=== PATIENT | male | born 1990 | race Hispanic/Latino ===

== ENCOUNTER 2017-01-12 19:45 | Emergency (ER) | payer OTHER ==
[~2017-01-12] VITALS: Ht 177.8 cm; Wt 74.8 kg
[~2017-01-12 19:45] MED LIST: CIPRO500 M1 PO; FLAGYL500 MG PO; IMODIUM A-D2 M1 PO; LEVSIN-SL0.125 MG SL; VICODIN 5-3001 EACH PO; ZOFRAN ODT4 M1 SL
[2017-01-12 19:52] VITALS: BP 157/103
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
== END 2017-01-12 20:14 | disposition left against medical advice (07) ==
LOC: ERH 19:45
DX: M24.411 Recurrent dislocation, right shoulder (principal)
CPT/HCPCS: 99282

== ENCOUNTER 2017-02-25 18:47 | Emergency (ER) | payer OTHER ==
[~2017-02-25] VITALS: Ht 177.8 cm; Wt 77.1 kg
--- NOTE | 2017-02-25 21:01 | ED SKIN/ALLERGY COMPLAINT ---
History of Present Illness General Chief Complaint: General Adult Stated Complaint: SENT BY SHOW CARD WRITER FOR PENICILLIN INJECTION Source: patient Exam Limitations: no limitations Vital Signs & Intake/Output Vital Signs & Intake/Output Vital Signs Date Time Temp Pulse Resp B/P B/P Pulse O2 O2 Flow FiO2 Mean Ox Delivery Rate 02/25 1851 98.5 103 16 141/95 97 Room Air Allergies Coded Allergies: NO KNOWN ALLERGIES (01/30/14) Reconcile Medications No Known Home Medications Triage Note: PT WAS SEEN IN WALK IN AND F/UP WITH DERM AND STATES HE HAS STD AND NEEDS INJECTION OF PCN. CALLED THIS AM AND SPOKE WITH DR. SALCEDO ABOUT IT. Triage Nurses Notes Reviewed? yes HPI: Patient presents for evaluation of a gradual onset of skin rash that began about 1 week ago. The rash has been constant and diffuse and described as severe by the patient. He was seen by a truer pinion and wheel and a biopsy done that returned positive for syphilis. He is here for initiation of treatment. Nothing seems to make his rash better or worse. Past History Travel History Traveled to [place] past 21 day No Medical History Any Pertinent Medical History? see below for history Neurological: NONE EENT: NONE Cardiovascular: NONE Respiratory: NONE Gastrointestinal: NONE Hepatic: NONE Renal: NONE Musculoskeletal: NONE Psychiatric: NONE Endocrine: NONE Blood Disorders: NONE Cancer(s): NONE DEPARTMENTAL BUYER/Reproductive: NONE Surgical History Surgical History: non-contributory Psychosocial History What is your primary language Slovenian Tobacco Use: Current Daily Use Daily Tobacco Use Amount/Type: => 5 Cigarettes daily ETOH Use: occasional use Illicit Drug Use: denies illicit drug use Family History Hx Contributory? No Review of Systems Review of Systems Constitutional: Reports: no symptoms. EENTM: Reports: no symptoms. Respiratory: Reports: no symptoms. Cardiovascular: Reports: no symptoms. GI: Reports: no symptoms. Genitourinary: Reports: no symptoms. Musculoskeletal: Reports: no symptoms. Skin: Reports: see HPI. Neurological/Psychological: Reports: no symptoms. Hematologic/Endocrine: Reports: no symptoms. Immunologic/Allergic: Reports: no symptoms. All Other Systems: Reviewed and Negative Physical Exam Physical Exam General Appearance: SEE BELOW Comments: Gen.: Well-nourished, well-developed, no acute respiratory distress. Head: Normocephalic, atraumatic. Eyes: Normal inspection bilaterally Ears: Normal inspection bilaterally Nose: Normal inspection Throat/mouth : Moist mucosa Neck: Supple, full range of motion, no goiter Lungs: Quiet respirations Back: Normal range of motion Abdomen: Nondistended Extremities: Normal range of motion grossly, normal color Neurologic: Cranial nerves grossly intact, speech is clear Skin: warm and dry, diffuse maculopapular rash Psychiatric: Calm, cooperative, no apparent delusions or hallucinations Progress Differential Diagnosis: SECONDARY SYPHILIS Plan of Care: Current Medications Sig/Ellen Start time Last Medication Dose Stop Time Status Admin Penicillin G 2.4 MU ONE ONE 02/25 2100 UNVr Benzathine 02/25 2101 (Bicillin) Departure Departure Disposition: HOME OR SELF CARE Condition: Stable Clinical Impression Primary Impression: Secondary syphilis Referrals: PATIENT HAS NO PRIMARY CARE DR (PCP/Family) Additional Instructions: You have been treated with 2.4 million units of penicillin. This should clear your infection. Please follow-up with your truer pinion and wheel or primary care doctor in 2 weeks for reevaluation if symptoms haven't resolved. Return if any concerns or sudden worsening. Thank you for choosing the [facility] Emergency Department for your care. It was a pleasure to serve you today. Jamel Larson M.D. [facility] Departure Forms: Customer Survey General Discharge Information Prescriptions: Current Visit Scripts No Known Home Medications
[2017-02-25 21:14] VITALS: BP 141/64
[2017-02-25] MEDS ORDERED: MUPIROCIN22 GM TOP (21:18)
[2017-02-25] MEDS ORDERED: HYDROCORTISONE59 ML TOP (21:19)
== END 2017-02-25 21:48 ==
LOC: ERH 18:47
DX: A53.9 Syphilis, unspecified (principal)
CPT/HCPCS: 96372; J0561